=== PATIENT | female | born 1950 | race American Indian/Alaskan Native ===

== ENCOUNTER 2019-01-21 09:55 | Outpatient (CLI) | payer OTHER | END 2019-01-21 11:27 | disposition home or self-care (01) | LOC: RX STUDY 09:55 | DX: E11.8 Type 2 diabetes mellitus with unspecified complications (principal); R13.19 Other dysphagia; E11.29 Type 2 diabetes mellitus with other diabetic kidney complication; E11.311 Type 2 diabetes mellitus with unspecified diabetic retinopathy with macular edema ==